=== PATIENT | male | born 1935 | race Caucasian/White ===

== ENCOUNTER 2021-04-27 20:27 | Emergency (ER) | payer MEDICARE ==
[~2021-04-27] VITALS: Ht 188 cm; Wt 83.9 kg
--- NOTE | ~2021-04-27 | EMS ---
[address] [address] EMS Patient Care Report Name: JOSÉ MIGUEL ZAVALA Room #: REG PURNIMA Christianson#: [id number] Admission: 04/27/21 Attend Phys: Discharge: Date of : 39 Report #: [id number] THIS REPORT FOR: //name// Report Transmitted: 04/27/2021 22:38 EMS Care Summary [facility] MED-ACT Incident [id number] @ 04/27/2021 19:42 Incident Location [address] [place] [address] Patient JOSÉ MIGUEL ZAVALA Male, 86 Years 1935 Patient Address [address] [place] [address] Patient History Other,Hypertension (HTN), Patient Allergies Codeine,Penicillin allergy,Other drug allergy, Patient Medications Losartan, Silodosin, Chief Complaint weakness Disposition Transported No Lights/[facility] Dispatch Reason Stroke/CVA Transported To [facility] Narrative Arrived to find the patient sitting in a chair in the entry to his home appearing to be in no distress. The patient's son was on scene and reported that the patient called him approximately 30 minutes prior asking for help. He stated that when he arrived, his father was on the kitchen floor, unable to [address] [address] EMS Patient Care Report Name: JOSÉ MIGUEL ZAVALA Room #: REG ER Meghan#: [id number] Admission: 04/27/21 Attend Phys: Discharge: Date of : 39 Report #: [id number] stand up. The patient reported that he was in the kitchen preparing to cool dinner when he turned around and suddenly felt like he "couldn't stand", calling to the floor. The patient denied injury, hitting his head, and loss of consciousness. The patient reported that this was the first time that it had happened. The patient's son reported that the patient had "mini strokes" approximately 6 months prior that affected his vision but no symptoms like that since. Began VS monitoring. CSS was positive for slurred speech; alcohol containers were found on scene and the patient admitted to having "a drink or two" today. The patient was unable to stand without assistance stating that he "felt like he was leaning forward". The patient reported feeling much weaker than usual. The patient's son reported that the patient had been having an increase in mobility issues but refused to use a walker. The patient was able to stand and pivot to the stretcher with assistance and without incident. Noted that the patient was incontinent of bladder. Secured the patient and moved him to the unit. Resumed VS monitoring. Transported the patient with rails up and seat belts on. The patient reported no changes or additional symptoms en route. At destination, the patient was able to move himself from the stretcher across to the hospital bed with minimal assistance and without incident. Transferred care and gave report to the unit RN. Initial Vitals @20:20P: 74,SpO2: 96, @19:52P: 81,SpO2: 93, @20:18Temp: 97.7F, @20:07P: 78,R: 14,BP: 110/72,Pain: 0/10,GCS: 15,SpO2: 92,Revised Trauma: 12, @19:50P: 80,R: 16,BP: 106/72,Pain: 0/10,GCS: 15,Glucose: 54,SpO2: 94,Revised Trauma: 12, @20:20P: 73,R: 16,BP: 121/73,Pain: 0/10,GCS: 15,SpO2: 95,Revised Trauma: 12, @20:00P: 79,R: 16,BP: 100/66,Pain: 0/10,GCS: 15,Glucose: 83,SpO2: 96,Revised Trauma: 12, Impression Generalized Weakness Procedures @20:18Surgical Mask on PatientResponse: Unchanged Timeline 19:40,Call Received 19:40,Psap Call 19:42,Dispatched 19:43,[place] [address] EMS Patient Care Report Name: BANDAR ZAVALAT Karissa Room #: REG Meghan#: [id number] Admission: 04/27/21 Attend Phys: Discharge: Date of : 39 Report #: [id number] 19:47,On Scene 19:48,At Patient 19:50,BP: 106/72 M,PULSE: 80,RR: 16 R,SPO2: 94 Ox,ETCO2: ,B,PAIN: 0,GCS: 15, 19:52,BP: / M,PULSE: 81,RR: R,SPO2: 93 Ox,ETCO2: ,BG: ,PAIN: ,GCS: , 20:00,BP: 100/66 M,PULSE: 79,RR: 16 R,SPO2: 96 Ox,ETCO2: ,B,PAIN: 0,GCS: 15, 20:07,BP: 110/72 M,PULSE: 78,RR: 14 R,SPO2: 92 Ox,ETCO2: ,BG: ,PAIN: 0,GCS: 15, 20:09,Depart Scene 20:18,BP: / M,PULSE: ,RR: R,SPO2: Ox,ETCO2: ,BG: ,PAIN: ,GCS: , 20:18,Surgical Mask on Patient,Response: Unchanged 20:20,BP: / M,PULSE: 74,RR: R,SPO2: 96 Ox,ETCO2: ,BG: ,PAIN: ,GCS: , 20:20,BP: 121/73 M,PULSE: 73,RR: 16 R,SPO2: 95 Ox,ETCO2: ,BG: ,PAIN: 0,GCS: 15, 20:21,At Destination 20:38,Call Closed Disclaimer v1.1 Copyright 2020 [employer] This EMS Care Summary contains data elements from the applicable legal record (which may be displayed differently). It is designed to provide pertinent information for the following purposes: continuity of care, clinical quality, and state data reporting. The complete legal record is available to ED staff and administrators of the receiving hospital in [employer]'s Patient Tracker. All data is provided "as is."
[~2021-04-27 20:27] MED LIST: ASPIR 8181 MG PO; CARDURA4 MG PO; DOXEPIN 10 MG C10 MG PO; FISH OIL 1,0001 EAC8 PO; PRAVACHOL40 MG PO; UNICOMPLEX M TA1 TA1 PO
[2021-04-27] MEDS ORDERED: SILODOSIN8 MG PO (20:41)
[2021-04-27] MEDS ORDERED: MEMANTINE HCL5 MG PO (20:41)
[2021-04-27] MEDS ORDERED: LIPITOR 40 MG T40 M1 PO (20:42)
[2021-04-27] MEDS ORDERED: COZAAR 25 MG TA25 M1 PO (20:42)
[2021-04-27] MEDS ORDERED: ASPIRIN PO (20:43)
[2021-04-27 21:26] LABS: ABSOLUTE NEUTROPHILS 4.3 thou/uL (1.4-8.2); BASOPHILS 0.7 % (0.0-2.0); EOSINOPHILS 4.2 % (0.0-3.0); HEMATOCRIT 43.4 % (42.0-52.0); HEMOGLOBIN 14.5 gm/dL (14.0-18.0); LYMPHOCYTES 16.6 % (24.0-44.0); MCH 32.2 pg (26.0-34.0); MCHC 33.4 g/dL (28.0-37.0); MCV 96.4 fL (80.0-100.0); MONOCYTES 9.6 % (1.0-8.0); PLATELET COUNT 147 thou/uL (150-400); POLYS 68.9 % (36.0-66.0); RBC 4.51 mil/uL (4.50-6.00); RDW 13.4 % (10.5-14.5); WBC 6.2 thou/uL (4.0-11.0)
[2021-04-27 21:31] LABS: CALCIUM 8.6 mg/dL (8.5-10.1); CREATININE 1.3 mg/dL (0.7-1.3); POTASSIUM 3.4 mmol/L (3.5-5.1)
[2021-04-27 21:44] LABS: URINE BILIRUBIN NEGATIVE (Negative); URINE BLOOD TRACE (Negative); URINE CLARITY CLEAR; URINE COLOR YELLOW; URINE GLUCOSE-RANDOM* NEGATIVE (Negative); URINE KETONES NEGATIVE (Negative); URINE NITRITE-REFLEX NEGATIVE (Negative); URINE PROTEIN (DIPSTICK) NEGATIVE (Negative); URINE SPECIFIC GRAVITY <= 1.005 (1.005-1.035); URINE UROBILINOGEN 0.2 E.U./dl (0.2-1.0)
[2021-04-27 21:45] LABS: URINE LEUKOCYTES-REFLEX 2+ (Negative)
[2021-04-27 22:12] LABS: BACTERIA-REFLEX 1-9 Few /HPF (None Seen); CASTS None Seen /LPF (None Seen); CRYSTALS None Seen /LPF (None Seen); MUCUS 0-3 Light strn/LPF (None Seen); SQUAMOUS 0-3 Few /LPF (0-3); URINE RBC 1-2 Rare /HPF (NONE SEEN); URINE WBC-REFLEX 6-15 Few /HPF (0-5)
[2021-04-28] MEDS ORDERED: ASPERCREME1 EACH TOP (00:30)
[2021-04-28] MEDS ORDERED: AZITHROMYCIN500 MG PO (00:30)
[2021-04-28] MEDS ORDERED: CEFPODOXIME PR200 M1 PO (00:30)
[2021-04-28] MEDS ORDERED: HYDROCODON-ACE1 EAC7 PO (00:30)
[2021-04-28 00:53] VITALS: BP 125/71
--- NOTE | 2021-04-28 06:51 | EKG ---
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 04/28/2151 51 51 Buster Rodas MD, FACRadha /EPI
[2021-05-02] MEDS ORDERED: MACROBID 100 M100 M1 PO (14:38)
== END 2021-04-28 00:55 | disposition home or self-care (01) ==
LOC: ER 20:27
PROVIDERS: Student in an Organized Health Care Education/Training Program
DX: S22.41XA Multiple fractures of ribs, right side, initial encounter for closed fracture (principal); R53.1 Weakness; E16.2 Hypoglycemia, unspecified; J18.9 Pneumonia, unspecified organism; R55 Syncope and collapse; N39.0 Urinary tract infection, site not specified; N40.0 Benign prostatic hyperplasia without lower urinary tract symptoms; E78.00 Pure hypercholesterolemia, unspecified; K21.9 Gastro-esophageal reflux disease without esophagitis; F17.210 Nicotine dependence, cigarettes, uncomplicated; I10 Essential (primary) hypertension; Z79.82 Long term (current) use of aspirin; Z90.89 Acquired absence of other organs; Z79.899 Other long term (current) drug therapy; Z88.1 Allergy status to other antibiotic agents; Z88.5 Allergy status to narcotic agent; W18.39XA Other fall on same level, initial encounter; Y93.G3 Activity, cooking and baking; Y92.098 Other place in other non-institutional residence as the place of occurrence of the external cause; Y99.8 Other external cause status

== ENCOUNTER → 2021-05-06 | Outpatient (CLI) | payer OTHER ==
[~2021-05-06] MED LIST changes: +ASPERCREME1 EACH TOP; +ASPIRIN PO; +AZITHROMYCIN500 MG PO; +CEFPODOXIME PR200 M1 PO; +COZAAR 25 MG TA25 M1 PO; +HYDROCODON-ACE1 EAC7 PO; +LIPITOR 40 MG T40 M1 PO; +MACROBID 100 M100 M1 PO; +MEMANTINE HCL5 MG PO; +SILODOSIN8 MG PO
== END ==
LOC: SJCVCIMAG 05-05 14:38
PROVIDERS: ATTEND Internal Medicine Cardiovascular Disease
DX: I08.3 Combined rheumatic disorders of mitral, aortic and tricuspid valves (principal); I49.9 Cardiac arrhythmia, unspecified; I77.819 Aortic ectasia, unspecified site; I10 Essential (primary) hypertension; E78.00 Pure hypercholesterolemia, unspecified; Z79.82 Long term (current) use of aspirin; Z79.899 Other long term (current) drug therapy; Z86.69 Personal history of other diseases of the nervous system and sense organs; Z72.89 Other problems related to lifestyle; F17.200 Nicotine dependence, unspecified, uncomplicated; Z88.5 Allergy status to narcotic agent; Z88.0 Allergy status to penicillin; Z88.8 Allergy status to other drugs, medicaments and biological substances

== ENCOUNTER → 2021-06-30 | Outpatient (CLI) | payer BC ==
[~2021-06-30] VITALS: Ht 185.4 cm; Wt 83.9 kg
[~2021-06-30] MED LIST changes: +IBUPROFEN200 M1 PO; +PLAVIX 75 MG TA75 MG PO; +TRAMADOL 50 MG50 MG PO
[2021-06-30 15:30] VITALS: BP 160/101
--- NOTE | 2021-06-30 15:48 | NUR ---
Pain Clinic Assessment: 1. History of Osteoarthritis: NONE History of Rheumatoid Arthritis: NONE 2. Height: 6 ft. 1 in. 185.4 cm. Weight: 185.0 lb. oz. 83.916 kg. Patient's BMI: 24.4 3. Vital Signs: BP: 160/101 Pulse: 81 Resp: 24 Temp: 02 Sat: 100 ECG Mon: 4. Pain Intensity: 6 5. Fall Risk: Dizziness: N Needs help standing or walking: Y Fallen in the last 3 months: Y Fall risk comments: 6. Patient on Blood Thinner: PLAVIX 7. History of Hypertension: Y 8. Opioid Therapy greater than 6 weeks: Opiate Contract Signed: 9. Risk Assessment Tool Provided: 0 LOW RISK 10. Functional Assessment Tool: 11. Recreational Drug Use: Never Drug Type: Tobacco Use: Current Every Day Smoker Tobacco Type: Pipe Tobacco Amount or Packs/day: -10 How Many Years: 50 Alcohol Use: Yes Frequency: Daily Quant: 1
== END ==
LOC: PAIN 14:51
PROVIDERS: ATTEND Family Medicine
DX: M47.26 Other spondylosis with radiculopathy, lumbar region (principal); M43.17 Spondylolisthesis, lumbosacral region; M48.061 Spinal stenosis, lumbar region without neurogenic claudication; Z88.0 Allergy status to penicillin; Z88.8 Allergy status to other drugs, medicaments and biological substances; Z79.899 Other long term (current) drug therapy

== ENCOUNTER → 2021-07-07 | Outpatient (CLI) | payer BC ==
[~2021-07-07] VITALS: Ht 185.4 cm; Wt 85.2 kg
[2021-07-07 10:03] VITALS: BP 165/95
--- NOTE | 2021-07-07 10:08 | NUR ---
Pain Clinic Assessment: 1. History of Osteoarthritis: NONE History of Rheumatoid Arthritis: NONE 2. Height: 6 ft. 1 in. 185.4 cm. Weight: 187.8 lb. oz. 85.186 kg. Patient's BMI: 24.8 3. Vital Signs: BP: 165/95 Pulse: 70 Resp: 20 Temp: 02 Sat: 100 ECG Mon: 4. Pain Intensity: 4 5. Fall Risk: Dizziness: N Needs help standing or walking: N Fallen in the last 3 months: N Fall risk comments: 6. Patient on Blood Thinner: PLAVIX 7. History of Hypertension: Y 8. Opioid Therapy greater than 6 weeks: Opiate Contract Signed: 9. Risk Assessment Tool Provided: 0 LOW RISK 10. Functional Assessment Tool: 11. Recreational Drug Use: Never Drug Type: Tobacco Use: Current Every Day Smoker Tobacco Type: Amount or Packs/day: How Many Years: Alcohol Use: Yes Frequency: Quant:
== END | disposition home or self-care (01) ==
LOC: PAIN 08:34
PROVIDERS: ATTEND Anesthesiology Pain Medicine
DX: M54.16 Radiculopathy, lumbar region (principal); M43.16 Spondylolisthesis, lumbar region; F17.210 Nicotine dependence, cigarettes, uncomplicated; Z98.890 Other specified postprocedural states; Z79.899 Other long term (current) drug therapy; Z88.8 Allergy status to other drugs, medicaments and biological substances; Z88.0 Allergy status to penicillin

== ENCOUNTER → 2021-08-24 | Outpatient (CLI) | payer BC | LOC: SJCVCIMAG 10:05 → SJCVC 10:05 | PROVIDERS: ATTEND Internal Medicine Cardiovascular Disease | DX: I65.23 Occlusion and stenosis of bilateral carotid arteries (principal); R94.31 Abnormal electrocardiogram [ECG] [EKG]; I44.4 Left anterior fascicular block; I10 Essential (primary) hypertension; E78.00 Pure hypercholesterolemia, unspecified; I77.810 Thoracic aortic ectasia; F17.200 Nicotine dependence, unspecified, uncomplicated; Z86.69 Personal history of other diseases of the nervous system and sense organs; Z72.89 Other problems related to lifestyle; Z79.82 Long term (current) use of aspirin; Z79.899 Other long term (current) drug therapy; Z82.49 Family history of ischemic heart disease and other diseases of the circulatory system; Z88.0 Allergy status to penicillin; Z88.1 Allergy status to other antibiotic agents; Z88.5 Allergy status to narcotic agent ==